=== PATIENT | female | born 1975 | race Two or more races ===

== ENCOUNTER 2024-03-07 17:32 | Emergency (ER) | payer OTHER ==
[~2024-03-07] VITALS: Ht 160 cm; Wt 56.7 kg
[2024-03-07 18:27] VITALS: BP 143/76; O2SAT 100
[2024-03-07] MEDS ORDERED: LEVOTHYROXINE25 MCG (18:28)
[2024-03-07] MEDS ORDERED: AMOX1TAB5 PO (21:57)
== END 2024-03-07 22:35 | disposition home or self-care (01) ==
LOC: ER 17:34
DX: S91.112A Laceration without foreign body of left great toe without damage to nail, initial encounter (principal); X83.8XXA Intentional self-harm by other specified means, initial encounter; Y93.89 Activity, other specified; Y92.69 Other specified industrial and construction area as the place of occurrence of the external cause; Y99.8 Other external cause status